=== PATIENT | male | born 1995 | race American Indian/Alaskan Native ===

== ENCOUNTER 2017-02-11 22:09 | Emergency (ER) | payer MEDICAID ==
[2017-02-11 22:21] VITALS: BP 139/77
[2017-02-11 22:45] LABS: Hematocrit 41.9 % (35.5-45.6); Hemoglobin 14.1 gm/dl (11.8-15.2); Mean Corpuscular HGB Conc 34 % (32-34); Mean Corpuscular Hemoglobin 29 pg (28-32); Mean Corpuscular Volume 86 fl (84-94); Platelet Count 203 K/mm3 (140-440); Red Blood Count 4.89 M/mm3 (3.65-5.03); Red Cell Distribution Width 13.2 % (13.2-15.2); White Blood Count 5.7 K/mm3 (4.5-11.0)
[2017-02-11 22:59] LABS: BUN/Creatinine Ratio 16.66; Blood Urea Nitrogen 15 mg/dL (9-20); Calcium 9.4 mg/dL (8.4-10.2); Carbon Dioxide 23 mmol/L (22-30); Glucose 126 mg/dL (75-100)
[2017-02-11 23:00] LABS: Anion Gap 21 mmol/L; Chloride 99.5 mmol/L (98-107); Sodium 140 mmol/L (137-145)
[2017-02-11 23:57] LABS: Blastocytes % (Manual) 0 %; Diff Status Complete; Platelet Estimate Consistent w Auto; RBC Morphology Normal
[2017-02-12 00:18] LABS: Urine Drugs of Abuse Note Disclamer
[2017-02-12 00:42] LABS: Bilirubin,Urine NEG (Negative); Blood,Urine NEG (Negative); Ketones,Urine NEG (Negative); Leukocyte Esterase,Urine NEG (Negative); Mucus,Urine FEW /HPF; Nitrite,Urine NEG (Negative); Protein,Urine <15 mg/dL mg/dL (Negative); Urobilinogen,Urine < 2.0 mg/dL (<2.0); WBC,Urine < 1.0 /HPF (0.0-6.0)
== END 2017-02-11 23:59 | disposition left against medical advice (07) ==
LOC: ED 22:09
DX: F41.9 Anxiety disorder, unspecified (principal); Z53.21 Procedure and treatment not carried out due to patient leaving prior to being seen by health care provider
CPT/HCPCS: 36415; 80048; 80307; 81001; 85007; 85025; G0480; 80320